=== PATIENT | male | born 1980 | race Two or more races ===

== ENCOUNTER 2019-11-28 04:36 | Emergency (ER) | payer SELFPAY ==
[~2019-11-28] VITALS: Ht 167.6 cm; Wt 77.1 kg
[2019-11-28] MEDS ORDERED: HALOPERIDOL LACTATE INJ 5 MG/ML VIAL ONE ×4 (04:50→05:31)
[2019-11-28] MEDS ORDERED: TDAP [DIPH/PERTUSSIS/TET] 0.5 ML VIAL IM ONE ×2 (04:50→05:00)
--- NOTE | 2019-11-28 04:56 | NUR ---
[facility] 37 AND [employer] FOR ANXIETY AND AGITATION AT THE [employer] OFFCE. 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 NOTED W/ MULTIPLE CUTS THROUGHOUT HIS SKIN W/ NO ACTIVE BLEEDING. PT WAS PLACED ON MONITOR W/ STABLE VS. W/ EPISODES OF AGITATION AND SCREAMING. REMAINED ON CONTINUOUS MONITORING AND 1:1 SITTER FOR SAFETY .
[2019-11-28] MEDS ORDERED: HALOPERIDOL LACTATE INJ 5 MG/ML VIAL IM ONE ×2 (05:00→05:30)
--- NOTE | 2019-11-28 05:00 | NUR ---
PT YELLING AND VERBALLY AGRESSIVE. MADE AWARE
[2019-11-28 05:04] LABS: BASOPHILS # (AUTO) 0.1 /CMM (0.0-0.2); BASOPHILS % (AUTO) 0.7 % (0.0-2.0); EOSINOPHILS % (AUTO) 0.3 % (0.0-6.0); HEMATOCRIT 45 % (39-51); HEMOGLOBIN 15.3 g/dL (13.5-17.5); LYMPHOCYTES # (AUTO) 1.8 /CMM (0.8-4.8); LYMPHOCYTES % (AUTO) 19.7 % (20.0-44.0); MEAN CORPUSCULAR HGB CONC 34 g/dl (31.0-36.0); MEAN CORPUSCULAR VOLUME 89 fL (80-96); MONOCYTES # (AUTO) 0.9 /CMM (0.1-1.30); MONOCYTES % (AUTO) 10.1 % (2.0-12.0); NEUTROPHILS # (AUTO) 6.4 /CMM (1.8-8.9); NEUTROPHILS % (AUTO) 69.2 % (43.0-81.0); PLATELET COUNT (AUTO) 244 /CMM (150-450); RED BLOOD CELL COUNT(AUTO) 5.04 MIL/uL (4.5-6.0); WHITE BLOOD COUNT (AUTO) 9.3 K/uL (4.3-11.0)
--- NOTE | 2019-11-28 05:07 | NUR ---
URINE COLLECTED AND SENT TO LAB
--- NOTE | 2019-11-28 05:10 | NUR ---
UNABLE TO OBTAIN EKG DUE TO PT AGITATION. WILL TRY AGAIN LATER. MADE AWARE.
[2019-11-28 05:13] LABS: CALCIUM, SERUM 9.6 mg/dL (8.5-10.1); CARBON DIOXIDE 23 mmol/L (21-32); CHLORIDE 102 mmol/L (98-107); CREATININE 1.5 mg/dL (0.6-1.3); GLUCOSE 93 mg/dL (74-106); SODIUM SERUM 141 mmol/L (136-145); UREA NITROGEN, BLOOD 17 mg/dL (7-18)
[2019-11-28 05:15] LABS: APPEARANCE,URINE Clear (CLEAR); BILIRUBIN,URINE SMALL (NEGATIVE); BLOOD, URINE Negative Ery/uL (NEGATIVE); COLOR,URINE Yellow (YELLOW); KETONES,URINE 40 (NEGATIVE); LEUKOCYTE ESTERASE ,URINE Negative (NEGATIVE); NITRITE, URINE Negative (NEGATIVE); PROTEIN,URINE 30 mg/dl (NEGATIVE); UGLUCOSE Negative (NEGATIVE)
[2019-11-28 05:19] LABS: ALANINE AMINOTRANSFERASE 48 U/L (12-78); ALBUMIN 4.1 g/dL (3.4-5.0); ALCOHOL, BLOOD < 3 mg/dL (0-0); ALKALINE PHOSPHATASE 59 U/L (46-116); ASPARTATE AMINOTRANSFERASE 42 U/L (15-37); BILIRUBIN,DIRECT 0.2 mg/dL (0.0-0.2); BILIRUBIN,TOTAL 0.7 mg/dL (0.2-1.0); TOTAL PROTEIN, SERUM 7.6 g/dL (6.4-8.2)
[2019-11-28 05:20] LABS: ACETAMINOPHEN 0 ug/ml (10-30); SALICYLATE 1.8 mg/dL (2.8-20.0)
--- NOTE | 2019-11-28 05:22 | NUR ---
pt was brought back from radiology department. unable to perform the CT due to pt did not stay still to perform the procedure. made aware
[2019-11-28] MEDS ORDERED: LORAZEPAM INJ 2 MG/ML VIAL ONE (05:26)
[2019-11-28 05:27] LABS: BACTERIA,URINE Few /HPF (None Seen); RBC,URINE 0-2 /HPF (0-2); SPERM,URINE Few /HPF (None Seen); SQUAMOUS EPITHELIAL CELL,UR Few /HPF (None Seen)
[2019-11-28] MEDS ORDERED: LORAZEPAM INJ 2 MG/ML VIAL IM ONE (05:30)
[2019-11-28 05:42] LABS: SERUM AMMONIA 30 umol/L (11-32)
[2019-11-28 06:14] LABS: THYROID STIMULATING HORMONE 2.097 uIU/mL (0.358-3.74)
--- NOTE | 2019-11-28 06:26 | NUR ---
PT PLACED ON 5150 HOLD BY SILVESTRE.
--- NOTE | 2019-11-28 06:28 | NUR ---
PT TRANSPORTED TO RADIOLOGY FOR CT.
--- NOTE | 2019-11-28 07:35 | NUR ---
PT ASSESSED ON BED EASILY AROUSABLE, NOT IN RESPIRATORY DISTRESS, V/S STABLE, KEPT RESTED AND COMFORTABLE, WILL CONTINUE TO MONITOR.
--- NOTE | 2019-11-28 13:40 | NUR ---
SCOTTIE LOYOLA CALLED. ETA 1 HOUR
--- NOTE | 2019-11-28 15:40 | NUR ---
Patient seen and evaluated by Cherelle. Denies SI/HI. A/ox4, ambulatory with steady gait. No distress noted. Patient given written and verbal discharge instructions. Patient verbalizes understanding of instructions. Patient is ambulatory with steady gait. Refuses offer of jail placement. Patient given list of available shelters in surrounding area.
[2019-11-28 18:47] VITALS: BP 124/77
== END 2019-11-28 15:40 | disposition home or self-care (01) ==
LOC: ER 04:37
DX: S30.1XXA Contusion of abdominal wall, initial encounter (principal); S80.812A Abrasion, left lower leg, initial encounter; R41.0 Disorientation, unspecified; F15.10 Other stimulant abuse, uncomplicated; R00.0 Tachycardia, unspecified; R40.4 Transient alteration of awareness; X58.XXXA Exposure to other specified factors, initial encounter; Y93.89 Activity, other specified; Y92.89 Other specified places as the place of occurrence of the external cause; Y99.8 Other external cause status
CPT/HCPCS: 36415; 70450; 71045; 74176; 80048; 80076; 80305; 80307; 80329; 81001; 82140; 84443; 85025; 87086; 90471; 90715; 93005; 96372 ×3; 99285; G0480; J1630 ×4; J2060; 81000-TC

== ENCOUNTER 2021-02-07 09:31 | Emergency (ER) | payer SELFPAY ==
[~2021-02-07] VITALS: Ht 170.2 cm; Wt 68.0 kg
--- NOTE | 2021-02-07 09:40 | NUR ---
Patient ju[place], from street, homeless. Admits on using meth 2 days ago. Denies SI/Hi. On room air, breathing evenly and unlabored. Kept comfortable, will continue to monitor accordingly. Sitter at bedside for constant montioring.
--- NOTE | 2021-02-07 10:03 | NUR ---
Patient a/ox4, refusing any treatment, Dr. finnegan at bedside. Patient given written and verbal discharge instructions. Patient verbalizes understanding of instructions. Patient is ambulatory with steady gait. Refuses offer of half-way placement. Patient given list of available shelters in surrounding area.
[2021-02-07 10:04] VITALS: BP 139/97
== END 2021-02-07 10:04 | disposition home or self-care (01) ==
LOC: ER 09:32
DX: F41.9 Anxiety disorder, unspecified (principal); F15.10 Other stimulant abuse, uncomplicated; Z59.0 Homelessness

== ENCOUNTER 2021-02-10 22:26 | Emergency (ER) | payer SELFPAY ==
[~2021-02-10] VITALS: Ht 170.2 cm; Wt 73.0 kg
[2021-02-10 22:35] VITALS: BP 140/90
[2021-02-10] MEDS ORDERED: IBUPROFEN 400 MG TABLET PO ONE (23:00)
== END 2021-02-11 01:17 | disposition home or self-care (01) ==
LOC: ER 22:27
DX: S93.492A Sprain of other ligament of left ankle, initial encounter (principal); F10.10 Alcohol abuse, uncomplicated; Y90.9 Presence of alcohol in blood, level not specified; Z59.0 Homelessness; W01.0XXA Fall on same level from slipping, tripping and stumbling without subsequent striking against object, initial encounter; Y93.89 Activity, other specified; Y92.89 Other specified places as the place of occurrence of the external cause; Y99.8 Other external cause status
CPT/HCPCS: 73610-TC

== ENCOUNTER 2021-02-11 08:05 | Emergency (ER) | payer SELFPAY ==
[~2021-02-11] VITALS: Ht 170.2 cm; Wt 59.9 kg
[2021-02-11 08:23] VITALS: BP 126/93
--- NOTE | 2021-02-11 08:25 | NUR ---
BIBS FOR C/O BILATERAL FOOT PAIN/BLISTERS X 3 DAYS. RATES PAIN 8/10. WILL CONTINUE TO MONITOR THE PATIENT.
--- NOTE | 2021-02-11 09:17 | NUR ---
Patient discharged to home in stable condition. Written and verbal after care instructions given. Patient verbalizes understanding of instruction.
== END 2021-02-11 09:20 | disposition home or self-care (01) ==
LOC: ER 08:05
DX: S93.492A Sprain of other ligament of left ankle, initial encounter (principal); S90.822A Blister (nonthermal), left foot, initial encounter; F10.10 Alcohol abuse, uncomplicated; Y90.9 Presence of alcohol in blood, level not specified; Z59.0 Homelessness; X58.XXXA Exposure to other specified factors, initial encounter; Y93.89 Activity, other specified; Y92.89 Other specified places as the place of occurrence of the external cause; Y99.8 Other external cause status
CPT/HCPCS: 99282; A6403